=== PATIENT | female | born 1955 | race Caucasian/White ===

== ENCOUNTER 2019-02-25 06:22 | Inpatient (IN) | payer MEDICARE, BC ==
[2019-02-25] MEDS: CEFAZOLIN 2 GM/50 ML (PMX) 50 ML IVPB (06:30)
[2019-02-25] MEDS: TRANEXAMIC ACID 1GM/100ML(PMX) 100 ML IVPB ×2 (06:30→11:43)
[2019-02-25] MEDS ORDERED: CEFAZOLIN 1 GM INJ (07:29)
[2019-02-25] MEDS ORDERED: GLYCOPYRROLATE 0.4 MG INJ (07:29)
[2019-02-25] MEDS ORDERED: ROCURONIUM 50 MG INJ (07:29)
[2019-02-25] MEDS ORDERED: PROPOFOL 20 ML (07:29)
[2019-02-25] MEDS ORDERED: FENTAnyl 50 MCG/ML VIAL ×2 (07:29→07:31)
[2019-02-25] MEDS ORDERED: MIDAZOLAM 1 MG/ML 2 ML INJ (07:29)
[2019-02-25] MEDS ORDERED: NEOSTIGMINE 3 MG/3 ML SYRINGE (07:29)
[2019-02-25] MEDS ORDERED: ONDANSETRON 4 MG INJ (07:30)
[2019-02-25] MEDS ORDERED: DEXAMETHASONE 4 MG/ML 5 ML INJ (07:30)
[2019-02-25] MEDS ORDERED: ROPIVACAINE 0.5 % 30 ML VIAL (07:31)
[2019-02-25] MEDS: GABAPENTIN 300 MG CAP PO ×2 (08:01→20:31)
[2019-02-25] MEDS: DEXAMETHASONE 1 MG TAB PO (08:01)
[2019-02-25 08:39] LABS: INR 1.01; PROTIME 13.4 Sec (11.9-14.9)
[2019-02-25 08:40] LABS: PARTIAL THROMBOPLASTIN TIME 32.8 Sec (23.0-35.0)
[2019-02-25] MEDS ORDERED: TRANEXAMIC ACID 1GM/100ML(PMX) 100 ML ×2 (09:25→10:15)
[2019-02-25] MEDS: POLYMYXIN/BACITRACIN 1L IRRIG (10:09)
[2019-02-25] MEDS: THROMBIN 5000 UNIT (RECOTHROM) VIAL (10:16)
[2019-02-25] MEDS: CA CHLORIDE (GM) 10% 10 ML INJ (10:17)
[2019-02-25] MEDS: BUPIVACAINE 0.5% (SDV) 30 ML, morphine SULFATE (PF) 8 MG, EPINEPHrine 0.3 MG, KETOROLAC... IRR (10:18)
[2019-02-25] MEDS ORDERED: ZOLPIDEM 5 MG TAB PO (11:00)
[2019-02-25] MEDS ORDERED: LOPERAMIDE 2 MG CAP PO (11:00)
[2019-02-25] MEDS ORDERED: oxyCODONE 5 MG TAB PO ×3 (11:00)
[2019-02-25] MEDS ORDERED: NACL 0.9% 3 ML SYG IV (11:00)
[2019-02-25] MEDS ORDERED: MAGNESIUM HYDROXIDE 30ML CUP PO (11:00)
[2019-02-25] MEDS ORDERED: DIPHENHYDRAMINE 50 MG INJ IV (11:00)
[2019-02-25] MEDS ORDERED: ONDANSETRON 4 MG INJ IV (11:00)
[2019-02-25] MEDS ORDERED: HYDROmorphONE 1 MG/ML SYG IV (11:00)
[2019-02-25] MEDS ORDERED: KETOROLAC 15 MG INJ IV (11:00)
[2019-02-25] MEDS: ACETAMINOPHEN 500 MG TAB PO ×3 (12:00→23:39)
[2019-02-25] MEDS: DEXAMETHASONE 2 MG TAB PO ×3 (12:00→23:39)
[2019-02-25] MEDS: CEFAZOLIN 1 GM/50 ML (PMX) 50 ML IVPB ×2 (12:02→18:37)
[2019-02-25 13:53] LABS: ADD MAN DIFF? NO
[2019-02-25 13:58] LABS: WHITE BLOOD COUNT 7.2 10^3/ul (4.8-10.8)
[2019-02-25 13:58] LABS: ABNORMAL IP MESSAGE 1; BASOPHILS % 0.1 % (0.0-2.0); HEMATOCRIT 35.2 % (37.0-47.0); LYMPHOCYTES # 0.3 10^3/ul (0.8-2.9); LYMPHOCYTES % 4.2 % (15.0-51.0); MEAN CORPUSCULAR HEMOGLOBIN 26.6 pg (29.0-33.0); MEAN CORPUSCULAR HGB CONC 31.3 g/dl (32.0-37.0); MEAN PLATELET VOLUME 9.6 fl (7.4-10.4); MONOCYTE # 0.2 10^3/ul (0.3-0.9); MONOCYTES % 2.1 % (0.0-11.0); NEUTROPHIL # 6.7 10^3/ul (1.6-7.5); NEUTROPHILS % 93.2 % (39.0-77.0); PLATELET COUNT 227 10^3/UL (140-415); RED BLOOD COUNT 4.14 10^6/ul (4.20-5.40)
[2019-02-25 14:18] LABS: POSITIVE DIFF @See below
[2019-02-25 15:26] LABS: ANISOCYTOSIS 1+ (0-0); BAND NEUTROPHILS #M 0.2 10^3/ul (0.0-0.6); BAND NEUTROPHILS % (M) 3 % (0-4); GIANT THROMBO% (M) 1 % (0-0); LYMPHOCYTES % (M) 1 % (15-51); MICROCYTOSIS 1+ (0-0); OVALOCYTES 1+ (0-0); PLATELET ESTIMATE NORMAL; POIKILOCYTOSIS 1+ (0-0); POLYCHROMASIA 1+ (0-0); SEG NEUT #M 6.9 10^3/ul (1.6-7.5); SEGMENTED NEUTROPHILS (M) % 96 % (39-77); SMUDGE%M 3 % (0-0)
[2019-02-25] MEDS ORDERED: ALBUTEROL HFA 8 GM INHALER INH (17:30)
[2019-02-25] MEDS: LACTATED RINGER'S 1,000 ML IV (18:41)
[2019-02-25] MEDS: WARFARIN 2 MG TAB PO (20:29)
[2019-02-25] MEDS: SENNA/DOCUSATE NA (8.6MG/50MG) TAB PO (20:31)
[2019-02-25] MEDS: FLUTICASONE 0.05% 16 GM NAS SPRAY NASAL (20:31)
[2019-02-25] MEDS: POTASSIUM CHLORIDE (SR) 10 MEQ TAB PO (20:31)
[2019-02-26] MEDS: CEFAZOLIN 1 GM/50 ML (PMX) 50 ML IVPB (02:37)
[2019-02-26] MEDS: ACETAMINOPHEN 500 MG TAB PO (05:31)
[2019-02-26] MEDS: DEXAMETHASONE 2 MG TAB PO (05:31)
[2019-02-26] MEDS ORDERED: LEVOTHYROXINE 150 MCG TAB PO (07:00)
[2019-02-26] MEDS ORDERED: [UNRECOGNIZED DRUG - OTHER] PO (09:00)
[2019-02-26] MEDS ORDERED: TRIAMTERENE/HCTZ (37.5-25) CAP PO (09:00)
[2019-02-26] MEDS ORDERED: VERAPAMIL (SR) 240 MG TAB PO (09:00)
[2019-02-26] MEDS: FLUTICASONE 0.05% 16 GM NAS SPRAY NASAL (09:22)
[2019-02-26] MEDS: TIOTROPIUM 18 MCG CAPSULE INHA DEV INH (09:23)
[2019-02-26] MEDS: LORATADINE 10 MG TAB PO (09:23)
[2019-02-26] MEDS: ESCITALOPRAM 10 MG TAB PO (09:23)
[2019-02-26] MEDS: LEVOTHYROXINE 150 MCG TAB PO (09:23)
[2019-02-26] MEDS: SENNA/DOCUSATE NA (8.6MG/50MG) TAB PO (09:23)
[2019-02-26] MEDS: POTASSIUM CHLORIDE (SR) 10 MEQ TAB PO (09:24)
[2019-02-26] MEDS: SPIRONOLACTONE 25 MG TAB PO (09:24)
[2019-02-27] MEDS ORDERED: LEVOTHYROXINE 150 MCG TAB PO (06:00)
== END 2019-02-26 10:39 | disposition home or self-care (01) | DRG 483 ==
LOC: SDS 06:22 → MS1 12:38 → SDS 10:53 → REC 10:53 → MS1 12:50
PROC: 0RRK00Z Replacement of Left Shoulder Joint with Reverse Ball and Socket Synthetic Substitute, Open Approach (ICD-10-PCS; principal; 2019-02-25 09:17)
DX: M13.812 Other specified arthritis, left shoulder (principal); M75.102 Unspecified rotator cuff tear or rupture of left shoulder, not specified as traumatic; E03.9 Hypothyroidism, unspecified; F32.9 Major depressive disorder, single episode, unspecified; I10 Essential (primary) hypertension; J45.909 Unspecified asthma, uncomplicated; K21.9 Gastro-esophageal reflux disease without esophagitis; M06.9 Rheumatoid arthritis, unspecified; Z96.641 Presence of right artificial hip joint; Z95.2 Presence of prosthetic heart valve; Z98.1 Arthrodesis status; Z79.01 Long term (current) use of anticoagulants
CPT/HCPCS: 71045; 73030; 85025; 85610; 85730; 86999; 88304; 88311